=== PATIENT | female | born 1990 | race Caucasian/White ===

== ENCOUNTER → 2020-05-31 15:36 | Outpatient (CLI) | payer OTHER, MEDICAID, SELFPAY ==
[2020-05-31 16:02] LABS: COVID19 -Nasal RAPID Negative (Negative)
== END ==
PROVIDERS: PCP Family Medicine; Visit Provider Specialist
DX: Z01.812 Encounter for preprocedural laboratory examination (principal); Z20.822 Contact with and (suspected) exposure to COVID-19
CPT/HCPCS: 87635

== ENCOUNTER 2020-06-01 06:39 | Day surgery (SDC) | payer OTHER, MEDICAID, SELFPAY ==
[2020-06-01] VITALS (8 sets, daily range): BP systolic 93–132; BP diastolic 50–78; PULSE 72–90; RESP 10–14; TEMP 36.2–37.4; O2SAT 97–100; BMI 18.7
--- NOTE | 2020-06-01 | PATH_ITS ---
[facility] Accession Number: [id number] . 01 Material submitted: . peritoneum - PERITONEAL BIOPSIES . 01 Clinical history: . SDC . 02 Diagnosis: Peritoneum Biopsies: Consistent with endometriosis. No evidence of malignancy. MRV 06/12/2020 1430 Local . 02 Comment: As part of routine manufacturing quality technician, Dr. Graff has reviewed this case and agrees with the diagnosis of endometriosis. . 02 Electronically signed: . Mitchel Saha MD, PhD, Pathologist NPI- [id number] . 01 Gross description: . The specimen is received in formalin, labeled peritoneal biopsies and consists of multiple galindo-pink fragments of soft tissue measuring 3.0 x 2.5 x 1.0 cm in aggregate. The specimen is entirely submitted in cassettes A1-A2. ([id number]) /MRV 06/06/2020 1508 Local . 02 Microscopic: . Sections are of fibroadipose tissue and skeletal muscle. There are foci of cystically dilated glandular areas with luminal hemosiderin-laden macrophages, and a bland cuboidal to columnar epithelium. These dilated glandular elements are variably invested by a cellular epithelioid stroma. The stromal element is diffusely reactive on a CD10 immunohistochemical stain, consistent with endometrial stroma; a control stain shows appropriate reactivity. . * This test was developed and its performance characteristics determined by [employer]. It has not been cleared or approved by the U.S. Food and Drug Administration. The FDA has determined that such clearance or approval is not necessary. This test is used for clinical purposes. It should not be regarded as investigational or for research. . 02 Pathologist provided ICD-10: N94.6, N80.3 . 02 CPT . 537884, S60709 Performed at: 01 [facility] [address] [place] [address], [place], [place] [id number] MD Canelo Orantes MD Phone: [phone] Performed at: 02 [facility] [address] [place], [place] [id number] MD Kaylah Graff MD Phone: [phone]
[2020-06-01] MEDS: LACTATED RINGERS 1,000 ML 100 ML IV ×2 (06:49→09:34)
--- NOTE | 2020-06-01 07:21 | PM.PREOP ---
Pre-operative Note COVID-19 COVID-19 status: Negative Result date/Date tested (Pos, Neg/Pending): 05/31/20 Interval Note History & Physical reviewed/Exam performed by Physician: Yes Changes to H&P: No
--- NOTE | 2020-06-01 08:12 | SUR.OPER ---
Lithotomy on padded OR bed, head on pillow, arms secured on padded arm boards at <90 degrees abduction. Legs secured in padded yellow fins stirrups.
[2020-06-01] MEDS: METHYLENE BLUE 50 MG/10 ML VIAL 25 MG INJ (08:34)
[2020-06-01] MEDS: BUPIVACAINE 0.5% W/ EPI (PF) 30 ML VIAL INJ (08:35)
[2020-06-01] MEDS: OXYCODONE/ACETAMINOPHEN 5/325 TABLET 1 TAB PO (10:14)
[2020-06-01] MEDS: ONDANSETRON 4 MG/2 ML INJ IV (10:14)
--- NOTE | 2020-06-01 10:14 | PM.OP.1 ---
Operative Date/Time/Diagnoses Date of procedure: 06/01/20 Time of procedure: 10:14 Pre-op diagnosis: dysmenorrhea with known endometriosis possible right endometrioma Post-op diagnosis: other ( no evidence of right endometrioma) Procedure & Clinicians Procedure: laparoscopy with lysis of adhesions, removal and fulguration of endometriosis Same procedure as scheduled: Yes Indications: dysmenorrhea with known endometriosis with possible right endometrioma on ultrasound Surgeon: Jayshree Trejo Click Yes if Unassisted: Yes Anesthesia Type: General Operative Notes Findings: Extensive pelvic endometriosis found on bladder flap, uterine serosa, bilateral fallopian tubes and broad ligament, left sidewall. normal appearing liver edge. Normal appearing bowel surface, with appendix not clearly visualized. Normal appearing uterus. Normal appearing right ovary with adhesions surrounding. Mass in the left adnexa with adhesions, possible endometrioma. Both fallopian tubes were significantly adhesed to the ovaries. No adhesions to the anterior abdominal wall. Closure Type: primary Specimen(s): other ( peritoneal biopsies) Estimated Blood Loss (mL): 50 Blood products transfused: none Procedure in detail: Patient was brought to the operating room where she underwent general anesthesia. She was placed in [facility] stirrups and prepped and draped in usual sterile fashion. No antibiotics were indicated. Pulsatile stockings were in place and functional. Warming was with blankets and Zhen Hugger. A single-tooth tenaculum was placed on the anterior lip of the cervix and the cervix dilated to #6 Hegar dilator. The Marjorie uterine manipulator was placed and balloon inflated with 3 mL of air. The area of the incisions were injected with half percent Marcaine with epinephrine. An incision was made in the superior portion of the umbilicus with a scalpel and the Verres needle placed in the abdomen. Confirmation of correct placement of the needle was performed by withdrawing on the syringe and then allowing fluid to fall freely through the needle. The abdomen was insufflated to 4 L of CO2. A 5 mm trocar was placed under direct visualization. 2 other 5 mm trochars were placed in the right and left lower quadrant under direct visualization after incising the skin. There did not appear to be any damage with placement of the trocars. Areas of endometriosis on the sidewall, and bladder flap were incised with cautery scissors. Adhesions around the ovaries were cut. The spoon cautery was used to cauterize the endometriosis on the uterine serosa and the fallopian to serosa. Dissection of the mass in the left adnexa had release of dark fluid possibly endometriosis versus hemorrhagic cyst. Bleeding was controlled with the PK. There was some mild continued oozing in this area so Surgicel was placed. Adequate hemostasis was noted. The CO2 was allowed to escape from the abdomen. The trochars were removed. Skin was closed with 4-0 monocryl. The patient went to recovery room in good condition. Complications: none Post-operative Condition: stable Disposition: same day surgery Plan for aftercare: Patient will be sent home when awake and stable. Follow-up in 1 week. Will need Lupron therapy.
== END 2020-06-01 11:10 | disposition home or self-care (01) ==
PROVIDERS: PCP Family Medicine; Referring Provider Specialist; Visit Provider Specialist
PROC: 0U5B4ZZ Destruction of Endometrium, Percutaneous Endoscopic Approach (ICD-10-PCS; CPT 58662; principal; 2020-06-01 07:45)
DX: N80.2 Endometriosis of fallopian tube (principal); N80.3 Endometriosis of pelvic peritoneum; N73.6 Female pelvic peritoneal adhesions (postinfective)
CPT/HCPCS: 58662; 81025; J1100; J1885; J2250; J2405; J2704; J3010; Q9968